=== PATIENT | male | born 1985 | race Hispanic/Latino ===

== ENCOUNTER 2022-12-18 09:42 | Emergency (ER) | payer SELFPAY ==
--- OUTSIDE RECORDS SUMMARY | 2022-12-18 10:10 | XMS REPORT | Continuity of Care Document ---
:1985 Author Organization [facility] t Address [address] [facility] [address] [place] [address] Care Team Providers Name Role Phone PCP, PATIENT DOES NOT HAVE A Primary Care Physician Unavaila WILBERT Cazares Attending Clinician Unavailable Wilbert López Attending Clinician BETITO MICHEL Attending Clinician Unavailable Betito Michel Attending Clinician VILLA ESTRADA Attending Clinician Unavailable MONTY PEÑA Admitting Clinician Unavailable Monty Peña Admitting Clinician BETITO MICHEL Admitting Clinician Unavailable Betito Michel Admitting Clinician Problems Condition Condition Condition Status Onset Resolution Last Treating Co mments Source Name Details Category Date Date Treatment Clinician Date PNEUMOTHOR PNEUMOTHO Diagnosis Active 2019-12-29 Memoria AX RAX Active 12-21 21:53:00 l 12/22/2019 00:00: CORNELIO Silva [place] Pneumothor Pneumotho Problem 2019-12-26 Memoria ax, rax, 21:23:04 l unspecifie unspecifie Horace quezada 12/26/2019 Reece Meek [place] PNEUMOTHOR PNEUMOTHO Diagnosis Active 2019-12-29 Memoria AX, RAX, 21:53:00 l UNSPECIFIE UNSPECIFIE He jack D D Active [facility] Allergies, Adverse Reactions, Alerts Allergy Allergy Status Severity Reaction(s) Onset Inactive Treating Comm ents Source Name Type Date Date Clinician NO KNOWN Drug Active Kelsie ALLERGTAYLOR Class ity of [facility] [place] [place] No Known No Known Active Daisy a Medicati Medicati l on on Franco Allergtaylor Barrios s s Social History Smoking Status Start Date Stop Date Source Social History [facility] Medications Ordered Filled Start Stop Current Ordering Indication Dosage Frequency Signature Comments Components Source Medication Medication Date Date Medication? Clinician (SIG) Name Name Levofloxaci Yes 500 mg = 1 Memoria n 500 MG 12-23 tab, PO, l Oral Tablet 16:52: Q24H, X 7 H ermann [Levaquin] 00 day, # 7 tab, 0 Refill(s) Ceftriaxone No Notes: Corey mariah 12-22 (Same As: l 17:00: Rocephin). Use with 100 mL NS and infuse over 30 min MEDICATION WASTE Product Size: 1000 mg Product Wasted: ___ mg Azithromyci No Notes: Corey mariah n 12-22 (Same As: l 17:00: Zithromax IV) Acetaminoph No Notes: Corey mariah en 325 MG / 12-22 (Same as: l Hydrocodone 02:05: [place] Delia nn Bitartrate 00 325/5) Do 5 MG Oral not exceed Tablet 4gm/day of [[place] acetaminop 5/325] hen. Docusate No Notes: Memoria 12-21 (Same as: l 22:00: Colace) (Do Not Crush) Dextrose No 12.5 gm, Memor ia 50% Syringe 12-21 25 mL, l (D50W) 21:26: Route: [place] IVP, Drug Form: INJ, Dosing Weight 67.5, kg, PRN, PRN Blood Glucose Results, Start date: 12/22/19 16:26:00 CDT, Duration: 30 day, Stop date: 01/21/20 16:25:00 CDT, 0 Glucagon No 1 mg, Memoria 12-21 Route: IM, l 21:26: Drug form: 00 PDR/INJ, PRN, Dosing Weight 67.5, kg, PRN Blood Glucose Results, Start date: 12/22/19 16:26:00 CDT, Duration: 30 day, Stop date: 01/21/20 16:25:00 CDT, 0 Ondansetron No Notes: Corey mariah 12-21 (Same as: l 21:26: Zofran) MEDICATION WASTE Product Size: 4 mg Product Wasted: ___ mg Acetaminoph No Notes: Do M emoria en 12-21 not exceed l 21:26: 4 gm/day. (Same as: Tylenol) Ceftriaxone No Notes: Corey mariah 12-21 (Same As: l 17:00: Rocephin). Use with 100 mL NS and infuse over 30 min MEDICATION WASTE Product Size: 1000 mg Product Wasted: ___ mg Azithromyci No Notes: Corey mariah n 12-21 Take 1 l 17:00: hour before or 2 hours after meals. (Same As: Zithromax) Morphine No 2 mg, 1 Memori a 12-21 mL, Route: l 12:50: IVP, Drug form: SOLN, Q4H, Dosing Weight 67.5, kg, PRN Pain Score 7-10, Start date: 12/22/19 7:50:00 CDT, Duration: 30 day, Stop date: 01/21/20 7:49:00 CDT, 0 Acetaminoph No Notes: Corey mariah en 325 MG / 12-21 (Same as: l Hydrocodone 06:56: [place] Delia nn Bitartrate 00 325/5) Do 10 MG Oral not exceed Tablet 4gm/day of [[place] acetaminop 10/325] hen. NS 1,000 mL No 1,000 mL, M emoria 12-21 Rate: 100 l 06:56: ml/hr, Infuse over: 10 hr, Route: IV, Total Volume: 1,000, Start date: 12/22/19 1:56:00 CDT, Duration: 30 day, Stop date: 01/21/20 1:55:00 CDT, 0 Dextrose 2019-0 No 12.5 gm, Memor ia 50% Syringe 12-21 25 mL, l (D50W) 06:52: Route: [place] 00 IVP, Drug Form: INJ, kg, PRN, PRN Blood Glucose Results, Start date: 12/22/19 1:52:00 CDT, Duration: 30 day, Stop date: 01/21/20 1:51:00 CDT, 0 Glucagon 2019-0 No 1 mg, Memoria 12-21 Route: IM, l 06:52: Drug form: [place] 00 PDR/INJ, PRN, kg, PRN Blood Glucose Results, Start date: 12/22/19 1:52:00 CDT, Duration: 30 day, Stop date: 01/21/20 1:51:00 CDT, 0 Ondansetron 2019-0 No Notes: Corey mariah 12-21 (Same as: l 06:52: Zofran) [place] MEDICATION WASTE Product Size: 4 mg Product Wasted: ___ mg Acetaminoph 2019-0 No Notes: Do M emoria en 12-21 not exceed l 06:52: 4 gm/day. Franco 00 (Same as: Tylenol) Vital Signs Vital Name Observation Time Observation Value Comments Source Temperature Oral (F) 2019-12-24 17:00:00 98.0 F [facility] [place] Systolic (mm Hg) 2019-12-24 16:18:00 Corey rial Franco Diastolic (mm Hg) 2019-12-24 16:18:00 Mem orial [place] Temperature Oral (F) 2019-12-24 12:33:00 98.0 F [facility] [place] Systolic (mm Hg) 2019-12-24 12:33:00 Corey rial [place] Diastolic (mm Hg) 2019-12-24 12:33:00 Mem orial Franco Systolic (mm Hg) 2019-12-24 11:00:00 Corey rial [place] Diastolic (mm Hg) 2019-12-24 11:00:00 Mem o[facility] [place] Temperature Oral (F) 2019-12-24 09:00:00 97.8 F [facility] [place] Respitory Rate 2019-12-24 03:00:00 Memori al [place] Respitory Rate 2019-12-24 01:55:00 Memori al Franco Respitory Rate 2019-12-23 13:00:00 Memori al Franco Height 2019-12-22 22:56:00 175.26 cm [facility] [place] Weight 2019-12-22 22:56:00 [facility] [place] BMI Calculated 2019-12-22 22:56:00 Memori al [place] Temperature Oral (F) 2019-12-22 16:42:00 98.4 F [facility] [place] Respitory Rate 2019-12-22 16:42:00 Memori al [place] Systolic (mm Hg) 2019-12-22 16:42:00 Corey rial Franco Diastolic (mm Hg) 2019-12-22 16:42:00 Mem orial [place] Heart Rate 2019-12-22 16:42:00 [facility] [place] Heart Rate 2019-12-22 13:00:00 [facility] [place] Respitory Rate 2019-12-22 13:00:00 Memori al [place] Systolic (mm Hg) 2019-12-22 13:00:00 Corey rial [place] Diastolic (mm Hg) 2019-12-22 13:00:00 Mem orial Franco Height 2019-12-22 09:00:00 175.26 cm [facility] [place] Weight 2019-12-22 09:00:00 [facility] BMI Calculated 2019-12-22 09:00:00 Memori al Franco Temperature Oral (F) 2019-12-22 09:00:00 98.8 F [facility] [place] Heart Rate 2019-12-22 09:00:00 [facility] [place] Respitory Rate 2019-12-22 09:00:00 Memori al [place] Systolic (mm Hg) 2019-12-22 09:00:00 Corey rial [place] Diastolic (mm Hg) 2019-12-22 09:00:00 Mem orial [place] Height 2019-12-22 07:21:00 175.26 cm [facility] [place] Weight 2019-12-22 07:21:00 [facility] [place] BMI Calculated 2019-12-22 07:21:00 [facility]ori [facility] [place] Temperature Oral (F) 2019-12-22 06:32:00 98.4 F [facility] [place] Procedures This patient has no known procedures. Encounters Start End Encounter Admission Attending Care Care Encounter Source Date/Time Date/Time Type Type Clinicians Facility Department ID 2019-12-22 2019-12-24 Inpatient Inderjit [facility] [id number] Memoria 21:10:00 18:55:00 vance Gamez 21 l [facility] 2019-12-22 2019-12-24 Inpatient U CORNELIO LÓPEZSE MED [id number] 16:10[facility] 2019-12-24 Outpatient Rene SE [id number] 16:10:00 13:55:00 Wilbert 21 2019-12-22 2019-12-22 Inpatient Inderjit [facility] [id number] Memoria 16:09:00 20:20:00 vance Gamez 20 l [facility] 2019-12-22 2019-12-22 Inpatient U CARRINGTON MICHEL MED [id number] MHBL 11:09:00 15:20:00 EBTITO 2019-12-22 2019-12-22 Outpatient FRANCO Michel [facility] [id number] 11:09:00 15:20:00 Betito 20 2014-08-12 2014-08-13 Emergency X [place], [facility] [id number] Univers 23:23:29 02:28:[address] [facility] Results Test Description Test Time Test Comments Results Result Comments Source CHEM PANEL 2019-12-24 10:08:00 Test Item Value Reference Range Interpretation Comme nts Glucose Lvl (test code = Glucose Lvl) 90 70-99 [facility] [id number] 10:08:00 Test Item Value Reference Range Interpretation Comments BUN (test code = BUN) 14 7-22 [facility] [id number] 10:08:00 Test Item Value Reference Range Interpretation Comments Creatinine Lvl (test code = Creatinine 0.95 0.50-1.40 Lvl) [facility] [id number] 10:08:00 Test Item Value Reference Range Interpretation Comments Sodium Lvl (test code = Sodium Lvl) 139 135-145 [facility] [id number] 10:08:00 Test Item Value Reference Range Interpretation Comments Potassium Lvl (test code = Potassium 3.9 3.5-5.1 Lvl) [facility]2020-08-09 10:08:00 Test Item Value Reference Range Interpretation Comments Chloride Lvl (test code = Chloride Lvl) 106 95-109 [facility]2020-08-09 10:08:00 Test Item Value Reference Range Interpretation Comments CO2 (test code = CO2) 29 24-32 [place] [id number] 10:08:00 Test Item Value Reference Range Interpretation Comments Calcium Lvl (test code = Calcium Lvl) 8.9 8.5-10.5 [facility]2020-08-09 10:08:00 Test Item Value Reference Range Interpretation Comments AGAP (test code = AGAP) 7.9 10.0-20.0 [facility]2020-08-09 10:08:00 Test Item Value Reference Range Interpretation Comments eGFR (test code = eGFR) 105 [facility]6460[facility]55-72 10:08:00 Test Item Value Reference Range Interpretation Comments WBC (test code = WBC) 6.8 3.7-10.4 [place] [id number] 10:08:00 Test Item Value Reference Range Interpretation Comments RBC (test code = RBC) 4.93 4.70-6.10 [place] [id number] 10:08:00 Test Item Value Reference Range Interpretation Comments Hgb (test code = Hgb) 14.5 14.0-18.0 [place] 418[address]-08-09 10:08:00 Test Item Value Reference Range Interpretation Comments Hct (test code = Hct) 41.8 42.0-54.0 [place] 959420-08-09 10:08:00 Test Item Value Reference Range Interpretation Comments MCV (test code = MCV) 84.8 80.0-94.0 [place] 959420-08-09 10:08:00 Test Item Value Reference Range Interpretation Comments MCH (test code = MCH) 29.3 pg 27.0-31.0 [place] [id number] 10:08:00 Test Item Value Reference Range Interpretation Comments MCHC (test code = MCHC) 34.6 32.0-36.0 [place] [id number] 10:08:00 Test Item Value Reference Range Interpretation Comments RDW (test code = RDW) 13.5 11.5-14.5 [facility]nzhtpoDAISKPZQRA7048-06-58 10:08:00 Test Item Value Reference Range Interpretation Comments Platelet (test code = Platelet) 209 133-450 [facility] HospitalIfncrswCZNRSZSVZT9302-65-02 10:08:00 Test Item Value Reference Range Interpretation Comments MPV (test code = MPV) 8.1 7.4-10.4 [facility] HospitalThdpwchKSPNNNRHWE0282-84-37 10:08:00 Test Item Value Reference Range Interpretation Comments Segs (test code = Segs) 58.7 45.0-75.0 [facility] HospitalUomfpwsBYMRSUDBPM6481-84-58 10:08:00 Test Item Value Reference Range Interpretation Comments Lymphocytes (test code = Lymphocytes) 27.2 20.0-40.0 [facility] HospitalKftrqooCHPKIICZWR3735-95-21 10:08:00 Test Item Value Reference Range Interpretation Comments Monocytes (test code = Monocytes) 10.3 2.0-12.0 [facility] HospitalJxpqiatOFQGWMMACE3448-23-75 10:08:00 Test Item Value Reference Range Interpretation Comments Eosinophils (test code = 3.3 See_Comment [A utomated message] The Eosinophils) system which ge nerated this result tra nsmitted reference range : <=4.0. The reference r anton was not used to int erpret this result as normal/abnormal . [facility] HospitalJgdvvltNGFVYMTUSB8743-76-31 10:08:00 Test Item Value Reference Range Interpretation Comments Basophils (test code = 0.5 See_Comment [Aut omated message] The Basophils) system which ge nerated this result tra nsmitted reference range : <=1.0. The reference r anton was not used to int erpret this result as normal/abnormal . [facility] HospitalZvckjlvYUFPFBIXSP1348-06-75 10:08:00 Test Item Value Reference Range Interpretation Comments Neutrophils # (test code = Neutrophils 4.0 1.5-8.1 #) [facility] HospitalSxgjjxcJDDKNKGYTE3415-79-42 10:08:00 Test Item Value Reference Range Interpretation Comments Lymphocytes # (test code = Lymphocytes 1.9 1.0-5.5 #) [facility] HospitalTyldmsdRIJZWNSZHG9323-57-89 10:08:00 Test Item Value Reference Range Interpretation Comments Monocytes # (test code 0.7 See_Comment [Aut omated message] The = Monocytes #) system which generated this result tra nsmitted reference range : <=0.8. The reference r anton was not used to int erpret this result as normal/abnormal . [facility] HospitalLwceuufVWMFRAWKZN8569-59-08 10:08:00 Test Item Value Reference Range Interpretation Comments Eosinophils # (test code 0.2 See_Comment [A utomated message] The = Eosinophils #) system whic h generated this result tra nsmitted reference range : <=0.5. The reference r anton was not used to int erpret this result as normal/abnormal . [facility] HospitalCjcwnvnMTMOGFSFAK8929-39-34 11:04:00 Test Item Value Reference Range Interpretation Comments Platelet (test code = Platelet) 215 133-450 [facility] HospitalHvozzhjFOXEYDFTXJ7347-41-15 11:04:00 Test Item Value Reference Range Interpretation Comments MPV (test code = MPV) 8.2 7.4-10.4 [facility]2020-08-08 11:04:00 Test Item Value Reference Range Interpretation Comments Glucose Lvl (test code = Glucose Lvl) 90 70-99 [facility]2020-08-08 11:04:00 Test Item Value Reference Range Interpretation Comments BUN (test code = BUN) 17 7-22 [facility]2020-08-08 11:04:00 Test Item Value Reference Range Interpretation Comments Creatinine Lvl (test code = Creatinine 0.92 0.50-1.40 Lvl) [facility]2020-08-08 11:04:00 Test Item Value Reference Range Interpretation Comments Sodium Lvl (test code = Sodium Lvl) 139 135-145 [facility]2020-08-08 11:04:00 Test Item Value Reference Range Interpretation Comments Potassium Lvl (test code = Potassium 3.8 3.5-5.1 Lvl) [facility]2020-08-08 11:04:00 Test Item Value Reference Range Interpretation Comments Chloride Lvl (test code = Chloride Lvl) 107 95-109 [facility]2020-08-08 11:04:00 Test Item Value Reference Range Interpretation Comments CO2 (test code = CO2) 27 24-32 [place] 837840-08-08 11:04:00 Test Item Value Reference Range Interpretation Comments Calcium Lvl (test code = Calcium Lvl) 9.1 8.5-10.5 [facility]2020-08-08 11:04:00 Test Item Value Reference Range Interpretation Comments AGAP (test code = AGAP) 8.8 10.0-20.0 [facility]2020-08-08 11:04:00 Test Item Value Reference Range Interpretation Comments eGFR (test code = eGFR) 109 [facility] HospitalJkzrzbcXLSNFFDJRJ4927-27-35 11:04:00 Test Item Value Reference Range Interpretation Comments Segs (test code = Segs) 64.8 45.0-75.0 [facility] HospitalXevzehsEDCPAQJHYI8498-32-80 11:04:00 Test Item Value Reference Range Interpretation Comments Lymphocytes (test code = Lymphocytes) 23.9 20.0-40.0 [facility] HospitalEjmodbzLNEGTITDEU8576-55-46 11:04:00 Test Item Value Reference Range Interpretation Comments Monocytes (test code = Monocytes) 8.3 2.0-12.0 [facility] HospitalKandkyuEOBHRFGNTL3478-73-34 11:04:00 Test Item Value Reference Range Interpretation Comments Eosinophils (test code = 2.2 See_Comment [A utomated message] The Eosinophils) system which ge nerated this result tra nsmitted reference range : <=4.0. The reference r anton was not used to int erpret this result as normal/abnormal . [facility] HospitalPcrrbziSDMKAURCYP8750-72-01 11:04:00 Test Item Value Reference Range Interpretation Comments Basophils (test code = 0.8 See_Comment [Aut omated message] The Basophils) system which ge nerated this result tra nsmitted reference range : <=1.0. The reference r anton was not used to int erpret this result as normal/abnormal . [facility] HospitalXniaookAQKWBWWFQJ4823-42-05 11:04:00 Test Item Value Reference Range Interpretation Comments Neutrophils # (test code = Neutrophils 5.8 1.5-8.1 #) [facility] HospitalFeeeiwgQVGSOBSKYB4633-72-60 11:04:00 Test Item Value Reference Range Interpretation Comments Lymphocytes # (test code = Lymphocytes 2.1 1.0-5.5 #) [facility] HospitalYoirljrIFGROPDQPR9600-86-93 11:04:00 Test Item Value Reference Range Interpretation Comments Monocytes # (test code 0.7 See_Comment [Aut omated message] The = Monocytes #) system which generated this result tra nsmitted reference range : <=0.8. The reference r anton was not used to int erpret this result as normal/abnormal . [facility] HospitalMbidmmnERENUMNDXP7647-16-03 11:04:00 Test Item Value Reference Range Interpretation Comments Eosinophils # (test code 0.2 See_Comment [A utomated message] The = Eosinophils #) system whic h generated this result tra nsmitted reference range : <=0.5. The reference r anton was not used to int erpret this result as normal/abnormal . [facility] HospitalSofmoerAKMDEDSQEX8634-72-21 11:04:00 Test Item Value Reference Range Interpretation Comments Basophils # (test code 0.1 See_Comment [Aut omated message] The = Basophils #) system which generated this result tra nsmitted reference range : <=0.2. The reference r anton was not used to int erpret this result as normal/abnormal . [facility] HospitalUowajguVUSHSJGRSY4990-41-54 11:04:00 Test Item Value Reference Range Interpretation Comments WBC (test code = WBC) 9.0 3.7-10.4 [facility] HospitalYjypkuuASTOQAQETC5514-46-64 11:04:00 Test Item Value Reference Range Interpretation Comments RBC (test code = RBC) 5.15 4.70-6.10 [facility] HospitalWdlnatwQSNXPJEXEP5501-02-00 11:04:00 Test Item Value Reference Range Interpretation Comments Hgb (test code = Hgb) 15.1 14.0-18.0 [facility] HospitalKrimmzvOVBTBSAZEK4819-19-73 11:04:00 Test Item Value Reference Range Interpretation Comments Hct (test code = Hct) 44.2 42.0-54.0 [facility] HospitalIkoayncCXTMINUMUC8273-54-37 11:04:00 Test Item Value Reference Range Interpretation Comments MCV (test code = MCV) 85.9 80.0-94.0 [facility] HospitalDnhnnnpNQCORWKEFS7521-02-99 11:04:00 Test Item Value Reference Range Interpretation Comments MCH (test code = MCH) 29.3 pg 27.0-31.0 [facility] HospitalVmyefazZQOYQIYEUA0599-65-30 11:04:00 Test Item Value Reference Range Interpretation Comments MCHC (test code = MCHC) 34.1 32.0-36.0 [facility] HospitalDkiegxzRLDDMRDGRD1868-09-14 11:04:00 Test Item Value Reference Range Interpretation Comments RDW (test code = RDW) 13.8 11.5-14.5 [place] [address]-08-07 23:34:00 Test Item Value Reference Range Interpretation Comments Lymphocytes (test code = Lymphocytes) 18.7 20.0-40.0 [place] [address]-08-07 23:34:00 Test Item Value Reference Range Interpretation Comments Monocytes (test code = Monocytes) 7.7 2.0-12.0 [place] [address]-08-07 23:34:00 Test Item Value Reference Range Interpretation Comments Eosinophils (test code = 1.1 See_Comment [A utomated message] The Eosinophils) system which ge nerated this result tra nsmitted reference range : <=4.0. The reference r anton was not used to int erpret this result as normal/abnormal . [place] [address]-08-07 23:34:00 Test Item Value Reference Range Interpretation Comments Basophils (test code = 0.9 See_Comment [Aut omated message] The Basophils) system which ge nerated this result tra nsmitted reference range : <=1.0. The reference r anton was not used to int erpret this result as normal/abnormal . [facility] HospitalTfpvwiuBSPBFUFYTV4172-17-01 23:34:00 Test Item Value Reference Range Interpretation Comments Neutrophils # (test code = Neutrophils 7.7 1.5-8.1 #) [place] [address]-08-07 23:34:00 Test Item Value Reference Range Interpretation Comments Lymphocytes # (test code = Lymphocytes 2.0 1.0-5.5 #) [place] [address]-08-07 23:34:00 Test Item Value Reference Range Interpretation Comments Monocytes # (test code 0.8 See_Comment [Aut omated message] The = Monocytes #) system which generated this result tra nsmitted reference range : <=0.8. The reference r anton was not used to int erpret this result as normal/abnormal . [place] 959420-08-07 23:34:00 Test Item Value Reference Range Interpretation Comments Eosinophils # (test code 0.1 See_Comment [A utomated message] The = Eosinophils #) system wh h generated this result tra nsmitted reference range : <=0.5. The reference r anton was not used to int erpret this result as normal/abnormal . [facility] HospitalBzvcfczUEHBAXOKUM4543-12-45 23:34:00 Test Item Value Reference Range Interpretation Comments Basophils # (test code 0.1 See_Comment [Aut omated message] The = Basophils #) system which generated this result tra nsmitted reference range : <=0.2. The reference r anton was not used to int erpret this result as normal/abnormal . [facility] HospitalMxplcpqTFFYZXWXPH8324-62-62 23:34:00 Test Item Value Reference Range Interpretation Comments WBC (test code = WBC) 10.7 3.7-10.4 [place] 959420-08-07 23:34:00 Test Item Value Reference Range Interpretation Comments RBC (test code = RBC) 5.09 4.70-6.10 [place] [address]-08-07 23:34:00 Test Item Value Reference Range Interpretation Comments Hgb (test code = Hgb) 14.7 14.0-18.0 [place] [address]-08-07 23:34:00 Test Item Value Reference Range Interpretation Comments Hct (test code = Hct) 43.9 42.0-54.0 [facility] HospitalFwyoluaEOENTXYBII1408-67-60 23:34:00 Test Item Value Reference Range Interpretation Comments MCV (test code = MCV) 86.3 80.0-94.0 [facility] HospitalAapnygdMGNSNHQTFD7216-61-13 23:34:00 Test Item Value Reference Range Interpretation Comments MCH (test code = MCH) 28.9 pg 27.0-31.0 [facility] HospitalTyrkmwxMRGDEXOOKY1111-04-57 23:34:00 Test Item Value Reference Range Interpretation Comments MCHC (test code = MCHC) 33.5 32.0-36.0 [place] 959420-08-07 23:34:00 Test Item Value Reference Range Interpretation Comments RDW (test code = RDW) 13.6 11.5-14.5 [place] 959420-08-07 23:34:00 Test Item Value Reference Range Interpretation Comments Platelet (test code = Platelet) 268 133-450 [facility] HospitalXwpqjahWPYJMDLTCP9231-74-54 23:34:00 Test Item Value Reference Range Interpretation Comments MPV (test code = MPV) 8.7 7.4-10.4 [facility]puwfuGOWCBXBOFJ9654-97-73 23:34:00 Test Item Value Reference Range Interpretation Comments RBC Morph (test code = Normal (12/22/19 6:34 PM) RBC Morph) [facility] HospitalSnjjmmqYQULYLRTVO6438-60-64 23:34:00 Test Item Value Reference Range Interpretation Comments Plt Morph (test code = Normal (12/22/19 6:34 PM) Plt Morph) [facility] HospitalBzenfyhJNHIWBEXYE6508-71-89 23:34:00 Test Item Value Reference Range Interpretation Comments Segs (test code = Segs) 71.6 45.0-75.0 [facility]CARD[facility] CSQNYMK2905-02-41 07:51:00 Test Item Value Reference Range Interpretation Comments Troponin-I (test code no gt See_Comment [Auto mated message] The = Troponin-I) system which g enerated this result transmit mora reference range : <=0.40. The reference r anton was not used to interpr et this result as debbie l/abnormal. [facility] [id number] 07:51:00 Test Item Value Reference Range Interpretation Comments Glucose Lvl (test code = Glucose Lvl) 111 70-99 [facility] [id number] 07:51:00 Test Item Value Reference Range Interpretation Comments BUN (test code = BUN) 21 7-22 [facility]2020-08-07 07:51:00 Test Item Value Reference Range Interpretation Comments Creatinine Lvl (test code = Creatinine 1.15 0.50-1.40 Lvl) [facility]2020-08-07 07:51:00 Test Item Value Reference Range Interpretation Comments Sodium Lvl (test code = Sodium Lvl) 139 135-145 [facility]2020-08-07 07:51:00 Test Item Value Reference Range Interpretation Comments Potassium Lvl (test code = Potassium 3.8 3.5-5.1 Lvl) [facility]2020-08-07 07:51:00 Test Item Value Reference Range Interpretation Comments Chloride Lvl (test code = Chloride Lvl) 107 95-109 [facility]2020-08-07 07:51:00 Test Item Value Reference Range Interpretation Comments CO2 (test code = CO2) 27 24-32 [facility] [id number] 07:51:00 Test Item Value Reference Range Interpretation Comments Calcium Lvl (test code = Calcium Lvl) 8.8 8.5-10.[address] [facility] [place] [id number] 07:51:00 Test Item Value Reference Range Interpretation Comments Total Protein (test code = Total 7.4 6.4-8.4 Protein) [facility] [id number] 07:51:00 Test Item Value Reference Range Interpretation Comments Albumin Lvl (test code = Albumin Lvl) 3.8 3.5-5.[address] [facility] [place] [id number] 07:51:00 Test Item Value Reference Range Interpretation Comments ALT (test code = ALT) 24 See_Comment [Auto mated message] The system which ge nerated this result transmit mora reference range : <=65. The reference range was not used to interpr et this result as debbie l/abnormal. [facility] [place] [id number] 07:51:00 Test Item Value Reference Range Interpretation Comments AST (test code = AST) 17 See_Comment [Auto mated message] The system which ge nerated this result transmit mora reference range : <=37. The reference range was not used to interpr et this result as debbie l/abnormal. [facility] [place] [id number] 07:51:00 Test Item Value Reference Range Interpretation Comments Alk Phos (test code = Alk Phos) 72 39-[address] [facility] [place] [id number] 07:51:00 Test Item Value Reference Range Interpretation Comments Bili Total (test code = Bili Total) 0.6 0.2-1.[address] [facility] [place] [id number] 07:51:00 Test Item Value Reference Range Interpretation Comments AGAP (test code = AGAP) 8.8 10.0-20.[address] [facility] [place] [id number] 07:51:00 Test Item Value Reference Range Interpretation Comments B/C Ratio (test code = B/C Ratio) 18 1 6-[address] [facility] [place] [id number] 07:51:00 Test Item Value Reference Range Interpretation Comments Globulin (test code = Globulin) 3.6 2.7-4.[address] [facility] [place] [id number] 07:51:00 Test Item Value Reference Range Interpretation Comments A/G Ratio (test code = A/G Ratio) 1.1 1 0.7-1.6 [facility]2020-08-07 07:51:00 Test Item Value Reference Range Interpretation Comments eGFR (test code = eGFR) 84 [facility] [id number] 07:51:00 Test Item Value Reference Range Interpretation Comments WBC (test code = WBC) 17.1 3.7-10.4 [id number] 07:51:00 Test Item Value Reference Range Interpretation Comments RBC (test code = RBC) 5.17 4.70-6.10 [facility] [id number] 07:51:00 Test Item Value Reference Range Interpretation Comments Hgb (test code = Hgb) 15.2 14.0-18.0 [facility] [id number] 07:51:00 Test Item Value Reference Range Interpretation Comments Hct (test code = Hct) 43.7 42.0-54.0 [id number] 07:51:00 Test Item Value Reference Range Interpretation Comments MCV (test code = MCV) 84.5 80.0-94.0 [facility] [id number] 07:51:00 Test Item Value Reference Range Interpretation Comments MCH (test code = MCH) 29.4 pg 27.0-31.0 [facility] [id number] 07:51:00 Test Item Value Reference Range Interpretation Comments MCHC (test code = MCHC) 34.8 32.0-36.0 [facility] Hos[id number] 07:51:00 Test Item Value Reference Range Interpretation Comments RDW (test code = RDW) 13.8 11.5-14.5 [facility] H[id number] 07:51:00 Test Item Value Reference Range Interpretation Comments Platelet (test code = Platelet) 276 133-450 [facility] [id number] 07:51:00 Test Item Value Reference Range Interpretation Comments MPV (test code = MPV) 8.0 7.4-10.4 [facility] [id number] 07:51:00 Test Item Value Reference Range Interpretation Comments Segs (test code = Segs) 80.2 45.0-75.[address]08-07 07:51:00 Test Item Value Reference Range Interpretation Comments Lymphocytes (test code = Lymphocytes) 12.4 20.0-40.0 [place] [id number] 07:51:00 Test Item Value Reference Range Interpretation Comments Monocytes (test code = Monocytes) 6.8 2.0-12.0 [facility] [id number] 07:51:00 Test Item Value Reference Range Interpretation Comments Eosinophils (test code = 0.3 See_Comment [A utomated message] The Eosinophils) system which ge nerated this result tra nsmitted reference range : <=4.0. The reference r anton was not used to int erpret this result as normal/abnormal . [facility] [id number] 07:51:00 Test Item Value Reference Range Interpretation Comments Basophils (test code = 0.3 See_Comment [Aut omated message] The Basophils) system which ge nerated this result tra nsmitted reference range : <=1.0. The reference r anton was not used to int erpret this result as normal/abnormal . [facility] H[id number] 07:51:00 Test Item Value Reference Range Interpretation Comments Neutrophils # (test code = Neutrophils 13.7 1.5-8.1 #) [facility] H[id number] 07:51:00 Test Item Value Reference Range Interpretation Comments Lymphocytes # (test code = Lymphocytes 2.1 1.0-5.5 #) [facility] [id number] 07:51:00 Test Item Value Reference Range Interpretation Comments Monocytes # (test code 1.2 See_Comment [Aut omated message] The = Monocytes #) system which generated this result tra nsmitted reference range : <=0.8. The reference r anton was not used to int erpret this result as normal/abnormal . [place] [id number] 07:51:00 Test Item Value Reference Range Interpretation Comments Basophils # (test code 0.1 See_Comment [Aut omated message] The = Basophils #) system which generated this result tra nsmitted reference range : <=0.2. The reference r anton was not used to int erpret this result as normal/abnormal . [facility] Notes Date/Time Note Provider Source 2019-12-24 07:27:00-00:00 PROCEDURE INFORMATION: [facility] Exam: XR Chest, 1 View Exam date and time: 12/24/2019 7:28 AM Age: 34 years old Clinical indication: /ptx TECHNIQUE: Imaging protocol: XR of the chest Views: 1 view. COMPARISON: CHEST 1VIEW DX 12/23/2019 1:48 PM FINDINGS: Tubes, catheters and devices: None. Lungs: Right sided pulmonary opacities identifie d within the upper chest. Opacities within the lateral inferior aspect of the right upper lobe, just above the minor fissure. Opacities appear stable to slightly improved. Linear density identified within th e left lung base. The lungs appear otherwise clear. Pleural space: No pleural effusion or pneumothor ax. Heart/Mediastinum: Mediastinum and blake appear u nremarkable. Bones/joints: No acute bony abnormality identifi ed. The visualized aspects of the thoracic rib cage appears unremarkable. IMPRESSION: 1. No pneumothorax identified. 2. Infiltrates within the ri ght upper lobe appears stable to slightly improved. 3. Linear left basilar pulmonary atelectasis, sc arring. Chidi Lou MD On 12/24/2019 09:06:06; SIVAN- [id number] 2019-12-23 13:50:00-00:00 PROCEDURE INFORMATION: [facility] Exam: XR Chest, 1 View Exam date and time: 12/23/2019 1:48 PM Age: 34 years old Clinical indication: /chest tube out TECHNIQUE: Imaging protocol: XR of the chest Views: 1 view. COMPARISON: CHEST 1VIEW DX 12/23/2019 8:[address] chest 11/2019 FINDINGS: Portable AP image. Right chest tube removed. No definite pneumothorax. Persistent minor consolidation posterior segmen t right upper lobe and medial right lung base and minor linear stranding left lung base. No pleural effusion. Normal cardiac silhouette. IMPRESSION: No definite pneumothorax post chest tube removal . Nima Colon MD On 12/23/2019 14:42:05; VR-G [id number] 2019-12-23 08:03:00-00:00 PROCEDURE INFORMATION: [facility] Exam: XR Chest, 1 View Exam date and time: 12/23/2019 8:03 AM Age: 34 years old Clinical indication: /ptx TECHNIQUE: Imaging protocol: XR of the chest Views: 1 view. COMPARISON: CHEST W CONTRAST CT 12/22/2019 11:13 AM FINDINGS: Tubes, catheters and devices: Right chest tube i s demonstrated. Lungs: Bilateral interstitial and alveolar pulmo nary opacities are demonstrated. The pulmonary opacities ar e more prominent within the right side of the chest. Pleural space: No pleural effusion or pneumothor ax. Heart/Mediastinum: Mediastinum and blake appear u nremarkable. Bones/joints: No acute bony abnormality identifi ed. The visualized aspects of the thoracic rib cage appears unremarkable. IMPRESSION: 1. Bilateral pneumonia. 2. Right-sided chest tube. No visualized pneumot horax. Chidi Lou MD On 12/23/2019 09:37:18; VR- [id number] 2019-12-22 11:17:34-00:00 Radiation Dose CTDIVOL = 0 ( mGy): DLP = 278.31 (mGy-cm) [facility] PROCEDURE INFORMATION: Exam: CT Chest With Contrast Exam date and time: 12/22/2019 11:13 AM Age: 34 years old Clinical indication: Right-sided chest pain; Add itional info: /right pneumothorax TECHNIQUE: Imaging protocol: Computed tomography of the too st with intravenous contrast. Radiation optimization: All CT scans at this facility use at least one of these dose optimization techniques: automated exposure control; mA and/or kV adjustment per patient size (includes targeted e xams where dose is matched to clinical indication); or iterative reconstructio n. Contrast material: OMNI 350; Contrast volume: 65 ml; Contrast route: INTRAVENOUS (IV); COMPARISON: CHEST 1VIEW DX 12/22/2019 5:32 AM RADIATION DOSE METRICS: Total DLP (mGy-cm): 278.31 FINDINGS: Tubes, catheters and devices: Right-sided chest tube is identified with tip apex. Tracheobronchial tree: The central bronchi are p atent. Lungs: Ground-glass and consolidative opacities are identified mainly within the right lung. Atelectasis identified at the lo wer lobes. 2.6 cm left upper lobe bleb. Pleural space: No evidence for pneumothorax or p leural effusion. Heart: No cardiomegaly. No pericardial effusion. Mediastinal space: Soft tissue density in the an terior mediastinum is consistent with thymic tissue. Aorta: Thoracic aorta is normal in caliber. Lymph nodes: Unremarkable. No enlarged lymph nod es. Bones/joints: No suspicious osseous lesion or fr acture. Soft tissues: Right chest wall subcutaneous emph ysema. Other findings: Visualized upper abdomen is unre markable. Notes: Visualized lower neck is unremarkable. IMPRESSION: 1. Right-sided chest tube without evidence for r esidual pneumothorax. 2. Multiple ground-glass and consolidative opaci ties of the right lung differential diagnosis of pneumonia versus contu heaven 3. Bibasilar atelectasis 4. Right chest wall subcutaneous emphysema Myrtle Gupta MD On 12/22/2019 16:03:4 6; [id number] 2019-12-22 05:10:00-00:00 PROCEDURE INFORMATION: [facility] Exam: XR Chest, 1 View Exam date and time: 12/22/2019 5:32 AM Age: 34 years old Clinical indication: /pneumothorax TECHNIQUE: Imaging protocol: XR of the chest Views: 1 view. COMPARISON: No relevant prior studies available. FINDINGS: Tubes, catheters and devices: Right chest tube i s demonstrated. Lungs: Bilateral interstitial and alveolar pulmo nary opacities are demonstrated. The pulmonary opacities ar e more prominent within the right side of the upper and lower chest. Mild opaci ty within the medial retrocardiac left lower chest. Left upper lung appears clear. Pleural space: Right-sided pneumothorax is demon strated. Heart/Mediastinum: Mediastinum and blake appear u nremarkable. There is no evidence for significant mediastinal shift. Bones/joints: No acute bony abnormality identifi ed. The visualized aspects of the thoracic rib cage appears unremarkable. Soft tissues: The pneumothorax measures up to approximately 3 cm in thickness, within the right upper chest. IMPRESSION: 1. Small to moderate size right pneumothorax wit h right-sided chest tube. 2. Bilateral pulmonary opacities compatible with pneumonia, atelectasis, more so on the right side. Chidi Lou MD On 12/22/2019 07:22:14; VR- [id number]
[2022-12-18] MEDS ORDERED: METOCLOPRAMIDE 10 MG/2mL INJ ONE (10:26)
[2022-12-18] MEDS ORDERED: dexAMETHasone 10 MG/ML VIAL ONE (10:26)
[2022-12-18] MEDS ORDERED: DIPHENHYDRAMINE 50 MG/ML VIAL ONE (10:26)
[2022-12-18] MEDS ORDERED: NA CHLORIDE 0.9% 1,000 ML ONE (10:27)
[2022-12-18] MEDS ORDERED: KETOROLAC 30 MG/ML INJ ONE (10:27)
--- NOTE | 2022-12-18 10:29 | RAD REPORT ---
EXAM DESCRIPTION: CT - Head Brain Wo Cont - 12/18/2022 10:18 am CLINICAL HISTORY: HEADACHE Headache, hypertension COMPARISON: No comparisons TECHNIQUE: All CT scans are performed using dose optimization technique as appropriate and may inclu de automated exposure control or mA/KV adjustment according to patient size. FINDINGS: No intracranial hemorrhage, hydrocephalus or extra-axial fluid collection.No areas of brai n edema or evidence of midline shift. The paranasal sinuses and mastoids are clear. The calvarium is intact. IMPRESSION: No acute intracranial abnormality.
[2022-12-18 10:48] LABS: Absolute Lymphocytes (CBC) 1.9 K/uL (0.7-4.9); Lymphocytes % 26.1 % (15.3-44.8); MPV 7.7 fL (7.6-11.3); RBC Red Blood Cell Count 5.01 M/uL (4.33-5.43)
[2022-12-18 11:07] LABS: Bilirubin Total 0.7 mg/dL (0.2-1.0); Potassium 3.6 mEq/L (3.5-5.1); Protein, Total 7.4 g/dL (6.4-8.2); Troponin High Sensitivity 4.3 pg/mL (<58.9)
--- NOTE | 2022-12-18 11:15 | EDPHYS ---
Physician Documentation [facility] Name: Vinnie Bear Age: 37 yrs Sex: Male : 1985 Arrival Date: 12/18/2022 Time: 09:42 Bed 2 Private MD: ED Physician Ricky Taylor HPI: 12/18 17:15 This 37 yrs old Male presents to ER via Ambulatory with complaints of kb Headache, High Blood Pressure. 17:15 The patient complains of pain to the top of head. The patient describes the headache as kb constant, throbbing. Onset: The symptoms/episode began/occurred 4 day(s) ago. Associated signs and symptoms: Pertinent positives: nausea, Photophobia. Severity of symptoms: At its worst the pain was moderate, in the emergency department the pain is unchanged. Headache History: Denies prior headaches. The symptoms are alleviated by nothing. the symptoms are aggravated by lights, movement, noise. The patient has not experienced similar symptoms in the past. The patient has not recently seen a physician. Historical: - Allergies: 09:53 No Known Allergies; ss - Home Meds: 09:53 None [Active]; ss - PMHx: 09:53 [place] Palsy; Bilateral pneumothorax; ss - PSHx: 09:53 None; ss - Immunization history:: Client reports having NOT received the Covid vaccine. - Social history:: Smoking status: Patient denies any tobacco usage or history of. ROS: 11:59 Constitutional: Negative for fever, chills, and weight loss. kb 11:59 Neuro: Positive for headache. 11:59 All other systems are negative. Exam: 11:59 Constitutional: This is a well developed, well nourished patient who is awake, alert, kb and in no acute distress. Head/Face: Normocephalic, atraumatic. ENT: Moist Mucous membranes Cardiovascular: Regular rate and rhythm with a normal S1 and S2. No gallops, murmurs, or rubs. No pulse deficits. Respiratory: Respirations even and unlabored. No increased work of breathing. Talking in full sentences Abdomen/GI: Soft, non-tender. No distention Skin: Warm, dry with normal turgor. Normal color. MS/ Extremity: Pulses equal, no cyanosis. Neurovascular intact. Full, normal range of motion. Neuro: Awake and alert, GCS 15, oriented to person, place, time, and situation. Moves all extremities. Normal gait. 11:59 ECG was reviewed by the Attending Physician. Vital Signs: 09:52 Pulse 71; Resp 15; Temp 98; Pulse Ox 100% on R/A; Weight 70.31 kg; Height 5 ft. 9 in. ; ss Pain 10/10; 10:00 BP 129 / 85; Pulse 68; Resp 18; Pulse Ox 98% ; ko1 11:26 BP 121 / 72; Pulse 62; Resp 16; Pulse Ox 98% ; ko1 09:52 Body Mass Index 22.89 (70.31 kg, 175.26 cm) ss 09:52 Pain Scale: Adult ss Landy Coma Score: 17:16 Eye Response: spontaneous(4). Motor Response: obeys commands(6). Verbal Response: kb oriented(5). Total: 15. MDM: 10:02 Patient medically screened. kb 17:16 Differential diagnosis: cluster headache, migraine, tension headache. Data reviewed: kb vital signs, nurses notes. Counseling: I had a detailed discussion with the patient and/or guardian regarding: the historical points, exam findings, and any diagnostic results supporting the discharge/admit diagnosis, lab results, radiology results, the need for outpatient follow up, a family practitioner, to return to the emergency department if symptoms worsen or persist or if there are any questions or concerns that arise at home. Response to treatment: the patient's symptoms have resolved after treatment, the patient's pain is gone. 12/18 10:09 Order name: CBC with Diff; Complete Time: 10:59 kb 12/18 10:09 Order name: CMP; Complete Time: 11:12 kb 12/18 10:09 Order name: CPK; Complete Time: 11:12 kb 12/18 10:09 Order name: Troponin High Sensitivity; Complete Time: 11:12 kb 12/18 10:09 Order name: CT Head Brain wo Cont; Complete Time: 10:29 kb 12/18 10:09 Order name: EKG; Complete Time: 10:10 kb 12/18 10:09 Order name: IV Start; Complete Time: 10:39 kb 12/18 10:09 Order name: EKG - Nurse/Tech; Complete Time: 10:39 kb EC:59 Rate is 98 beats/min. Rhythm is regular. QRS [place] is Normal. [place] interval is normal at kb 154 msec. QRS interval is normal at 80 msec. QT interval is normal at 449 msec. Administered Medications: 10:39 Drug: NS 0.9% IV 1000 ml Route: IV; Rate: 1000 ml; Site: right forearm; bp 10:39 Drug: metoCLOPramide IVP 10 mg Route: IVP; Site: right forearm; bp 10:39 Drug: diphenhydrAMINE IVP 12.5 mg Route: IVP; Site: right forearm; bp 10:39 Drug: Decadron - Dexamethasone IVP 10 mg Route: IVP; Site: right forearm; bp 10:39 Drug: Ketorolac IVP 15 mg Route: IVP; Site: right forearm; bp Disposition: 18:25 Co-signature as Attending Physician, Ricky Taylor MD I reviewed the patient's care rt provided by the Advanced Practice Provider and agree with the diagnosis and treatment plan. Disposition Summary: 12/18/22 11:14 Discharge Ordered Location: Home kb Condition: Stable kb Diagnosis - Headache kb Followup: kb - With: Emergency Department - When: As needed - Reason: Worsening of condition Followup: kb - With: Private Physician - When: 2 - 3 days - Reason: Recheck today's complaints, Continuance of care, Re-evaluation by your physician Discharge Instructions: - Discharge Summary Sheet kb - Migraine Headache, [id number] kb - General Headache Without Cause, [id number] kb Forms: - Medication Reconciliation Form kb - Thank You Letter kb - Antibiotic Education kb - Prescription Opioid Use kb - Patient Portal Instructions kb Signatures: Dispatcher [employer] Kayla Shannon, RAFAEL GAGNON-Mya Jon, RN RN Geoffrey Osborn, MERNA RN Ricky Menendez MD MD rt
--- NOTE | 2022-12-18 11:15 | ER ---
Nurse's Notes [facility] Name: Vinnie Bear Age: 37 yrs Sex: Male : 1985 Arrival Date: 12/18/2022 Time: 09:42 Bed 2 Private MD: Diagnosis: Headache Presentation: 12/18 09:52 Chief complaint: Patient states: JARRELL that began 4 days ago. Pt reports he checked BP ss yesterday which was 140/90. Coronavirus screen: Client denies travel out of the [place] in the last 14 days. Ebola Screen: Patient denies exposure to infectious person. Patient denies travel to an Ebola-affected area in the 21 days before illness onset. Initial Sepsis Screen: Does the patient meet any 2 criteria? No. Patient's initial sepsis screen is negative. Does the patient have a suspected source of infection? No. Patient's initial sepsis screen is negative. Risk Assessment: Do you want to hurt yourself or someone else? Patient reports no desire to harm self or others. Onset of symptoms was December 14, 2022. 09:52 Method Of Arrival: Ambulatory ss 09:52 Acuity: EAGLE 3 ss Triage Assessment: 11:27 Pain: Also complains of. ko1 Historical: - Allergies: 09:53 No Known Allergies; ss - Home Meds: 09:53 None [Active]; ss - PMHx: 09:53 [place] Palsy; Bilateral pneumothorax; ss - PSHx: 09:53 None; ss - Immunization history:: Client reports having NOT received the Covid vaccine. - Social history:: Smoking status: Patient denies any tobacco usage or history of. Screenin:00 [facility] ED Fall Risk Assessment (Adult) History of falling in the last 3 months, ko1 including since admission No falls in past 3 months (0 pts) Confusion or Disorientation No (0 pts) Intoxicated or Sedated No (0 pts) Impaired Gait No (0 pts) Mobility Assist Device Used No (0 pt) Altered Elimination No (0 pt) Score/Fall Risk Level 0 - 2 = Low Risk Oriented to surroundings, Maintained a safe environment, Educated pt \T\ family on fall prevention, incl call for assistance when getting out of bed, Assessed \T\ reinforced patient's understanding of fall precautions, Provided non-skid footwear, Hourly rounding (assess needs \T\ fall precautionary measures) done, Used ambulatory aids as needed (educated on \T\ assisted with). Abuse screen: Denies threats or abuse. Denies injuries from another. Nutritional screening: No deficits noted. Tuberculosis screening: No symptoms or risk factors identified. Assessment: 10:00 General: Appears in no apparent distress. uncomfortable, Behavior is calm, cooperative, ko1 appropriate for age. Pain: Complains of pain in top of head and forehead. Neuro: No deficits noted. Level of Consciousness is awake, alert, obeys commands. Cardiovascular: No deficits noted. Respiratory: No deficits noted. GI: No deficits noted. : No deficits noted. EENT: No deficits noted. Derm: No deficits noted. Musculoskeletal: No deficits noted. Vital Signs: 09:52 Pulse 71; Resp 15; Temp 98; Pulse Ox 100% on R/A; Weight 70.31 kg; Height 5 ft. 9 in. ; ss Pain 10/10; 10:00 BP 129 / 85; Pulse 68; Resp 18; Pulse Ox 98% ; ko1 11:26 BP 121 / 72; Pulse 62; Resp 16; Pulse Ox 98% ; ko1 09:52 Body Mass Index 22.89 (70.31 kg, 175.26 cm) ss 09:52 Pain Scale: Adult ss Landy Coma Score: 17:16 Eye Response: spontaneous(4). Motor Response: obeys commands(6). Verbal Response: kb oriented(5). Total: 15. ED Course: 09:45 Patient arrived in ED. mr 09:53 Triage completed. ss 09:53 Arm band placed on right wrist. ss 09:55 Geoffrey Osborn, RN is Primary Nurse. bp 10:00 Patient has correct armband on for positive identification. Bed in low position. Call ko1 light in reach. Side rails up X 1. Provided Education on: NA. Pulse ox on. NIBP on. Door closed. Noise minimized. Lights dimmed. Warm blanket given. 10:02 Kayla Champion FNP-C is PHCP. kb 10:02 Ricky Taylor MD is Attending Physician. kb 10:19 CT Head Brain wo Cont In Process Unspecified. EDMS 10:35 Inserted saline lock: 20 gauge in right forearm, using aseptic technique. Blood bp collected. 11:26 No provider procedures requiring assistance completed. IV discontinued, intact, ko1 bleeding controlled, No redness/swelling at site. Pressure dressing applied. Administered Medications: 10:39 Drug: NS 0.9% IV 1000 ml Route: IV; Rate: 1000 ml; Site: right forearm; bp 10:39 Drug: metoCLOPramide IVP 10 mg Route: IVP; Site: right forearm; bp 10:39 Drug: diphenhydrAMINE IVP 12.5 mg Route: IVP; Site: right forearm; bp 10:39 Drug: Decadron - Dexamethasone IVP 10 mg Route: IVP; Site: right forearm; bp 10:39 Drug: Ketorolac IVP 15 mg Route: IVP; Site: right forearm; bp Medication: 11:26 VIS not applicable for this client. ko1 Outcome: 11:14 Discharge ordered by . kb 11:26 Discharged to home ambulatory, with family. ko1 11:26 Condition: improved 11:26 Discharge instructions given to patient, family, Instructed on discharge instructions, follow up and referral plans. Demonstrated understanding of instructions, follow-up care. 11:27 Patient left the ED. ko1 Signatures: Dispatcher [employer] EDOK Kayla Champion, SOUNDSCRIBER MECHANIC-C SOUNDSCRIBER MECHANIC-David MongeaKaila mr Mya Landon, RN RN Geoffrey Monroy, Anne Olivo RN, MERNA RN ko1
[2022-12-18 11:47] VITALS: TEMP 98
[2022-12-18 11:48] VITALS: O2SAT 98
[2022-12-18 11:49] VITALS: BP 121/72
== END 2022-12-18 11:27 | disposition home or self-care (01) ==
LOC: ER 09:42
DX: R51.9 Headache, unspecified (principal)
CPT/HCPCS: 36415; 70450; 80053; 82550; 84484; 85025; 93005; 96374; 96375; 99284; J1100; J1200; J2765; J7030